=== PATIENT | female | born 1950 | race Caucasian/White ===

== ENCOUNTER → 2024-07-17 12:53 | Outpatient (REF) | payer OTHER, SELFPAY | LOC: HWWDC 12:53 | PROVIDERS: ATTENDING PHYSICIAN Nurse Practitioner Adult Health; OTHER PHYSICIAN Obstetrics & Gynecology Gynecology | DX: Z12.31 Encounter for screening mammogram for malignant neoplasm of breast (principal) | CPT/HCPCS: 77063; 77067 ==

== ENCOUNTER → 2024-08-03 13:45 | Outpatient (REF) | payer OTHER, SELFPAY | LOC: WDC 13:45 | PROVIDERS: ATTENDING PHYSICIAN Obstetrics & Gynecology Gynecology; FAMILY PHYSICIAN Nurse Practitioner Adult Health | DX: N64.4 Mastodynia (principal) | CPT/HCPCS: 76642 ==

== ENCOUNTER → 2024-12-28 09:12 | Outpatient (REF) | payer OTHER, SELFPAY | LOC: RAD 09:12 | PROVIDERS: ATTENDING PHYSICIAN Specialist; FAMILY PHYSICIAN Nurse Practitioner Adult Health | DX: Z96.652 Presence of left artificial knee joint (principal); M25.562 Pain in left knee | CPT/HCPCS: 78315; A9503 ==

== ENCOUNTER 2025-03-08 09:25 | Inpatient (IN) | payer OTHER, SELFPAY ==
[2025-02-08 11:38] LABS: Hematocrit 42.7 % (37.0-47.0); Hemoglobin 14.3 g/dL (12.0-16.0); Mean Corp Hgb Conc. 33.5 g/dL (33.0-37.0); Mean Corpuscular Hgb 30.9 pg (27.0-31.0); Mean Corpuscular Volume 92.2 fL (81.0-99.0); Mean Platelet Volume 9.1 fL (7.4-10.4); Platelet Count 312 10^3/uL (130-400); Red Blood Cell Count 4.63 10^6/uL (4.20-5.40); Red Cell Dist. Width 13.2 % (11.5-14.5); White Blood Cell Count 8.9 10^3/uL (4.8-10.8)
[2025-02-08 12:03] LABS: Glycohemoglobin (HgbA1c) 5.3 % (4.0-5.6)
[2025-02-08 13:38] VITALS: BMI 31.3
[2025-02-08 15:38] LABS: ALT (SGPT) 22 U/L (0-35); AST (SGOT) 34 U/L (14-36); Albumin 4.7 g/dl (3.5-5.0); Alkaline Phosphatase 56 U/L (38-126); Blood Urea Nitrogen 20 mg/dl (7-17); Carbon Dioxide 24 mmol/L (22-30); Chloride 104 mmol/L (98-107); Estimated Creatinine Clearance 61 ml/min; Glucose 98 mg/dl (70-99); Potassium 4.7 mmol/L (3.5-5.1); Sodium 139 mmol/L (135-145); Total Bilirubin 0.6 mg/dl (0.2-1.3); Total Protein 7.8 g/dl (6.3-8.2); eGFR > 60.00
[2025-02-17 08:41] VITALS: BMI 31.3
[2025-03-08] VITALS (14 sets, daily range): BP systolic 111–149; BP diastolic 59–88; PULSE 66; O2SAT 96
[2025-03-08] MEDS: TYLENOL 650 MG PO ×4 (09:53→23:14)
[2025-03-08] MEDS: BACTROBAN NASAL 1 GRAM NASAL (09:53)
[2025-03-08] MEDS: NORMOSOL-R/PLASMALYTE-A 1000 IV ×2 (10:10→16:00)
--- NOTE | 2025-03-08 13:44 | W.PN.ORTHO ---
Today's Communication / Plan
-
d/c when stable
Assessment
.
Dressing:
Clean, dry and intact.
Assessment:
Deep vein thrombosis, prophylaxis aspirin 81 mg b.i.d. dosing
with advised venous compression device. Due to patient's history of
prior massive GI bleed while on full-dose aspirin, we will utilize
this for blood clot prevention. She does agree to purchase SCD
device. On last endoscopy, ulcer is fully healed, and hemoglobin is
improved in high normal range today's visit. She will continue her
PPI both pre and postoperatively. Plan reviewed this with
Yas, her industrial accountant who also advises increasing her
Protonix to 40mg daily while on aspirin.
Pain control. Patient did become nauseous with oxycodone.
Hydrocodone has been prescribed, and we will avoid any NSAIDs due
to above.
Plan
.
Surgery / Date: L TKA Revision 03/08/25
DVT Prophylaxis: Aspirin (81mg bid w/ SCD)
Activity:
Out of bed.
PT/OT
Vital Signs and Labs
.
Vital Signs and Labs:
Lab Results
02/08/25 11:11
02/08/25 11:11
Temp Pulse Resp BP Pulse Ox
97.3 F 55 12 139/64 97
03/08/25 09:45 03/08/25 09:45 03/08/25 09:45 03/08/25 09:45 03/08/25 09:45
--- NOTE | 2025-03-08 14:03 | W.DS.TRANS ---
Addendum entered and electronically signed by Annabel Gilliland PA-C 03/09/25 09:47:
Cefadroxil 500mg bid disp #14
Probiotic
Original Note:
DC Summary - Tc Operator
-
Discharge Instructions:
Sleep Apnea Risk Intermediate
Discharge Diagnosis/Procedures L TKA Revision 03/08/25
Diet As tolerated
Activity With Walker
Additional Activity Adequate hydration, minimize Oxy and wear TEDs
stockings to prevent low blood pressure/
dizziness
Driving Restrictions No driving
Bathing Restrictions OK to Shower
Other Services PT
Instructions:
Stand-Alone Forms: Total Hip/Knee Replacement D/C
Changes to Home Medications: Yes
Discharge Medications:
DC Medications w/original date entered in [facility]
ascorbic acid (vitamin C) 1,000 mg tablet (Vitamin C) 1 g PO DAILY 02/05/25
biotin 10,000 mcg capsule 10,000 mcg PO DAILY 02/05/25
xjxobeq-ilhvljbrc-eyvt tablet 1 tab PO DAILY 02/05/25
cholecalciferol (vitamin D3) 125 mcg (5,000 unit) tablet (Vitamin D3) 125 mcg PO DAILY 02/05/25
varsha (Zingiber officinalis) 550 mg capsule 1,100 mg PO DAILY 02/05/25
iron bisglycinate chelate 25 mg PO DAILY 02/05/25
lysine 500 mg tablet (L-Lysine) 500 mg PO DAILY 02/05/25
mecobalamin (vitamin B12) 1,000 mcg chewable tablet 1,000 mcg PO DAILY 02/05/25
paroxetine HCl 20 mg tablet 20 mg PO HS 02/05/25
propranolol 10 mg tablet 5 mg PO DAILY TREMORS 02/05/25
turmeric root extract 500 mg tablet 1,500 mg PO DAILY 02/05/25
vitamin B complex 1 tab PO DAILY 02/05/25
dexamethasone 4 mg tablet 4 mg PO BID inflammation #6 tabs 02/08/25
gabapentin 300 mg capsule 300 mg PO HS sleep/pain #10 caps 02/08/25
hydrocodone 5 mg-acetaminophen 325 mg tablet 1 tab PO Q6H PRN 1 tab moderate pain or 2 if severe #30 tabs 02/08/25
mupirocin 2 % topical ointment 1 applic topical BID infection prevention #1 tube 02/08/25
ondansetron 4 mg disintegrating tablet 4 mg PO Q6H PRN n/v #20 tabs 02/08/25
acetaminophen 325 mg tablet 650 mg (2 x 325 mg) PO QID #0 tabs 03/08/25
aspirin 81 mg tablet,delayed release 81 mg PO BID Blood clot prevention/tx #60 tabs 03/08/25
docusate sodium 100 mg capsule (Colace) 100 mg PO BID stool softner #1 cap 03/08/25
magnesium hydroxide 400 mg/5 mL oral suspension (Milk of Magnesia) 30 ml PO HS PRN constipation #1 mL 03/08/25
pantoprazole 20 mg tablet,delayed release 40 mg (2 x 20 mg) PO DAILY GI prophlyaxis #90 tabs 03/08/25
sennosides 8.6 mg tablet (Senokot) 17.2 mg (2 x 8.6 mg) PO BID laxative #2 tabs 03/08/25
Home Medication Changes
dexamethasone 4 mg tablet 4 mg PO BID inflammation #6 tabs 02/08/25
gabapentin 300 mg capsule 300 mg PO HS sleep/pain #10 caps 02/08/25
hydrocodone 5 mg-acetaminophen 325 mg tablet 1 tab PO Q6H PRN 1 tab moderate pain or 2 if severe #30 tabs 02/08/25
mupirocin 2 % topical ointment 1 applic topical BID infection prevention #1 tube 02/08/25
ondansetron 4 mg disintegrating tablet 4 mg PO Q6H PRN n/v #20 tabs 02/08/25
acetaminophen 325 mg tablet 650 mg (2 x 325 mg) PO QID #0 tabs 03/08/25
aspirin 81 mg tablet,delayed release 81 mg PO BID Blood clot prevention/tx #60 tabs 03/08/25
docusate sodium 100 mg capsule (Colace) 100 mg PO BID stool softner #1 cap 03/08/25
magnesium hydroxide 400 mg/5 mL oral suspension (Milk of Magnesia) 30 ml PO HS PRN constipation #1 mL 03/08/25
pantoprazole 20 mg tablet,delayed release 40 mg (2 x 20 mg) PO DAILY GI prophlyaxis #90 tabs 03/08/25
sennosides 8.6 mg tablet (Senokot) 17.2 mg (2 x 8.6 mg) PO BID laxative #2 tabs 03/08/25
Pending Results: No
[2025-03-08] MEDS: NORCO 5/325 1 TABLET PO (15:48)
[2025-03-08] MEDS: DILAUDID 0.5 MG IV (16:08)
[2025-03-08] MEDS: NORCO 5/325 PO (17:47)
[2025-03-08] MEDS: PROTONIX 40 MG PO (18:03)
[2025-03-08] MEDS: ANCEF 5 IV (18:03)
--- NOTE | 2025-03-08 18:23 | PTCARENOTE ---
Received patient from PACU via bed around 1730 in stable condition. Left knee dressing with a small amount of drainage. +movement + sensation to LLE. Patient oriented to room. Call chavez in reach.
[2025-03-08] MEDS: SENOKOT 17.2 MG PO (20:10)
[2025-03-08] MEDS: ASPIR LOW (ENTERIC COATED) 81 MG PO (20:11)
[2025-03-08] MEDS: COLACE 100 MG PO (20:11)
[2025-03-08] MEDS: DECADRON 4 MG IV (20:11)
[2025-03-08] MEDS: BACTROBAN 2% OINTMENT 1 APPLIC NASAL (20:11)
[2025-03-08] MEDS: PAXIL 20 MG PO (22:18)
[2025-03-08] MEDS: NEURONTIN 300 MG PO (22:18)
[2025-03-09 03:00] VITALS: BP 141/65
[2025-03-09] MEDS: TYLENOL 650 MG PO ×2 (03:44→10:09)
[2025-03-09] MEDS: ANCEF 5 IV (03:44)
[2025-03-09] MEDS: NORCO 5/325 1 TABLET PO (06:05)
--- NOTE | 2025-03-09 06:41 | W.PN.ORTHO ---
Today's Communication / Plan
-
d/c when stable
Assessment
.
Distal Motor Intact: Yes
Dressing:
Clean, dry and intact.
Assessment:
Deep vein thrombosis, prophylaxis aspirin 81 mg b.i.d. dosing
with advised venous compression device. Due to patient's history of
prior massive GI bleed while on full-dose aspirin, we will utilize
this for blood clot prevention. She has purchased SCD
device. On last endoscopy, ulcer is fully healed, and hemoglobin is
improved in high normal range today's visit. She will continue her
PPI both pre and postoperatively. Plan reviewed this with
Yas, her fine arts teacher who also advises increasing her
Protonix to 40mg daily while on aspirin.
Pain control. Patient did become nauseous with oxycodone.
Hydrocodone has been prescribed, and we will avoid any NSAIDs due
to above.
Discussion re TEDs, adequate hydration and adhering to bowel regimen was stressed both for maintaining BP and prevention of p/o obstruction/ileus.
Plan
.
Surgery / Date: L TKA Revision 03/08/25
DVT Prophylaxis: Aspirin (81mg bid w/ SCD)
Activity:
Out of bed.
PT/OT
Discharge Plan: Home w/ Outpatient PT
Subjective
.
.:
Patient resting comfortably.
Vital Signs and Labs
.
Vital Signs and Labs:
Lab Results
02/08/25 11:11
02/08/25 11:11
Temp Pulse Resp BP Pulse Ox
98.2 F 67 16 141/65 95
03/09/25 03:00 03/09/25 03:00 03/09/25 03:00 03/09/25 03:00 03/09/25 03:00
Non-invasive Hgb result: 15.3
Physical Exam
-
HEENT: No pallor, cyanosis, or jaundice. Throat clear.
NECK: Supple. No JVD.
RESPIRATORY: Lungs clear to auscultation.
CVS: S1, S2 normal. RRR.� No murmur, rub or gallop.
ABDOMEN: Soft, non-tender. No distension. BS+/normal.
EXTREMITIES: strength equal, no calf pain with palpation
ANGLE SHEARER: AOx3. No focal deficits. glass inserter grossly intact
[2025-03-09 07:00] VITALS: BP 138/79
--- NOTE | 2025-03-09 08:43 | CM ---
Cm reviewed medical records. CM met with patient in room. Patient confirmed demographics. Patient lives with independently. Patent has a history of VN, but not currently on service. Patient does not have a history of SNF. Patient has a
cane, walker, shower chair and raised toilet seat. Patient is active with her PCP. Patient has medication coverage.
Patient has an outpatient appointment with [facility] on 03/10.
PLAN: Outpatient PT.
[2025-03-09] MEDS: COLACE 100 MG PO (10:09)
[2025-03-09] MEDS: ASPIR LOW (ENTERIC COATED) 81 MG PO (10:09)
[2025-03-09] MEDS: SENOKOT 17.2 MG PO (10:09)
[2025-03-09] MEDS: BACTROBAN 2% OINTMENT 1 APPLIC NASAL (10:09)
[2025-03-09] MEDS: PROTONIX 40 MG PO (10:09)
[2025-03-09] MEDS: DECADRON 4 MG IV (10:10)
[2025-03-09] MEDS: INDERAL 5 MG PO (10:11)
[2025-03-09 10:15] VITALS: BP 152/72; BP 154/69; PULSE 66; O2SAT 96
[2025-03-09 10:49] VITALS: BP 161/80
[2025-03-09 11:47] VITALS: BP 145/72; PULSE 60; O2SAT 96
== END 2025-03-09 11:55 | disposition home or self-care (01) | DRG 468 ==
LOC: 2 SOUTH 09:25
PROVIDERS: ADMITTING PHYSICIAN Specialist; FAMILY PHYSICIAN Nurse Practitioner Adult Health
PROC: 0SPD0JZ Removal of Synthetic Substitute from Left Knee Joint, Open Approach (ICD-10-PCS; 2025-03-08)
PROC: 0SRD0J9 Replacement of Left Knee Joint with Synthetic Substitute, Cemented, Open Approach (ICD-10-PCS; 2025-03-08)
DX: T84.033A Mechanical loosening of internal left knee prosthetic joint, initial encounter (principal); Y79.8 Miscellaneous orthopedic devices associated with adverse incidents, not elsewhere classified; K27.9 Peptic ulcer, site unspecified, unspecified as acute or chronic, without hemorrhage or perforation; K22.2 Esophageal obstruction; G25.0 Essential tremor; Z87.891 Personal history of nicotine dependence; Z79.82 Long term (current) use of aspirin
CPT/HCPCS: 36415; 73560; 80053; 83036; 85027; 86850; 86900; 86901; 87070; 93005; 97110; 97116; 97162; 97166; 97530; C1713; C1762; C1776

== ENCOUNTER 2025-03-25 00:14 | Emergency (ER) | payer OTHER, SELFPAY ==
[2025-03-25 00:17] VITALS: BP 117/72
[2025-03-25 00:48] VITALS: BP 112/65; BMI 31.6
[2025-03-25 01:00] VITALS: BP 122/54
--- NOTE | 2025-03-25 01:36 | ED.GENMED ---
History of Present Illness
General
Chief Complaint: Abdominal Symptoms
Source: patient, spouse and previous hospital records (Overnight hospitalization March 08 to March 09 after undergoing left total knee arthroplasty revision.)
Exam Limitations: none
Time Seen by Provider: 03/25/25 01:17
Nursing documentation reviewed up to this point in time: agreed with
History of Present Illness
History of Present Illness:
This is a 74-year-old woman who resides at home with her . She has history of left total knee replacement 2020 with persistent pain, concern for loosening of tibial hardware and thus underwent left total knee arthroplasty revision on March 08.
Hospitalized overnight for pain control. Discharged to home on the , has been taking [place] for pain, participating in outpatient physical therapy. She admits to moderate persistent knee pain but has been participating with physical therapy.
She presents with lower abdominal discomfort, crampy in nature along with significant constipation. She has not been maintained on a persistent bowel regimen and instead has been taking Dulcolax tablets over the past few days with resultant passage
of only a few small hard marbles of stool.
She has prior history of 1 prior episode of diverticulitis and states current abdominal pain feels quite different from previous episode of diverticulitis. She has not had a fever nor chills. She denies dysuria and urgency and or hematuria, denies
back nor flank pain.
Appetite has been somewhat poor but she has had no nausea nor vomiting. No chest pain or cough no shortness of breath.
She has prior history of upper GI bleed related to aspirin use. She denies upper abdominal pain, denies black or tarry stools and denies hematochezia.
Past History
Past History
ED Past Medical History: Other (Diverticulitis, upper GI bleed related to duodenal ulcer from aspirin use, kidney stone); Negative Asthma, HTN, Hypercholesterolemia or NIDDM
ED Past Surgical History: Orthopedic (left total knee 2020, left total knee revision March 08, 2025)
Social History
Tobacco: Former smoker
Alcohol: None
Personal:
Living: with family
Employment: Retired
Family History
Family History: Other (Noncontributory)
Phy Exam
Physical Exam
Physical Exam:
GENERAL: 74-year-old woman appears her stated age, awake and alert, appears in no acute distress. is accompanying.
EYE: anicteric
NECK: Supple, nontender, no meningismus, no significant adenopathy.
ENT: oral mucosa is moist. No rhinorrhea.
CARDIAC: Regular rate and rhythm. no murmur.
LUNGS: Clear breath sounds bilaterally, no acute respiratory distress, no wheezes/rales/rhonchi
ABDOMEN: Soft, nondistended, mild tenderness left lower quadrant with deep palpation only, no palpable masses, no r/g, no cvat. normoactive BS.
NEUROLOGICAL: Alert and oriented x3, no focal neuro deficits. Gait is mendez and steady.
SKIN: Warm and dry, normal color, skin intact. No rash.
MUSCULOSKELETAL: No C/C/E. peripheral pulses are full and equal b/l. Left anterior knee Steri-Strips dry and intact over intact vertical incision. There is mild left knee joint effusion. No erythema.
PSYCH: Normal and appropriate interaction.
Course
Orders/Labs/Results
Orders:
Orders
03/25/25 01:26
CR Obstruct Series W/pa Chest Urgent
Comment:
Reason For Exam: lower abd crampy pain, constipation x several days
03/25/25 01:57
Enema- Treatment ONCE
Type: Milk of Molasses
Vital Signs
Initial and Last Documented VS:
Initial Vital Signs
Temp Pulse Resp BP Pulse Ox
98.7 F 91 20 117/72 97
03/25/25 00:17 03/25/25 00:17 03/25/25 00:17 03/25/25 00:17 03/25/25 00:17
Last Documented Vital Signs
Temp Pulse Resp BP Pulse Ox
98.7 F 91 20 109/63 97
03/25/25 00:17 03/25/25 00:17 03/25/25 00:17 03/25/25 02:46 03/25/25 02:46
MDM/Problems Addressed
Differential Diagnosis Includes:
Concern for postop constipation related to narcotic pain medication. Other consideration is diverticulitis.
Will check obstruction series. If no significant stool burden will check labs and CT.
Chronic conditions affecting care: Other (Prior history of diverticulitis, history of renal calculi. Prior history of upper GI bleed. Recent left total knee revision.)
*Radiology
Radiology exam reviewed: preliminary read by ED provider (Moderate stool rectosigmoid region without evidence of obstipation nor obstruction.)
*Pulse Oximetry
Patient hypoxic: no
*Critical Care Note
Total Time (30-74mins, 75-104mins- exclusive of procedures): Not Applicable
Update Note
Update Note:
03:00
Obstruction series shows moderate stool within the rectal distal sigmoid region but no evidence of obstruction nor fecal impaction.
After receiving milk of molasses enema patient passed a large bowel movement.
Abdomen is soft without appreciable tenderness.
Will discharge to home with recommendations to initiate twice daily Senokot, twice daily Colace as well as high-fiber diet.
Prompt follow-up with PCP for recheck.
ED Attending Note
-
Portions of this chart may have been created with voice recognition software.� Occasional wrong word or��sound alike� substitutions may have occurred due to the inherent limitations of voice recognition software.
Discharge Plan
Departure
Patient Disposition: Home (Routine Discharge)
Date of Disposition: 03/25/25
Time of Disposition: 03:11
Patient with high blood pressure during this ER visit?: No
Condition: Good
Discharge Problem:
Constipation due to opioid therapy
Instructions: Constipation, Adult (DC)
Prescriptions:
No Action
ascorbic acid (vitamin C) [Vitamin C] 1,000 mg Tablet
1 g PO DAILY
propranolol 10 mg Tablet
5 mg PO DAILY
ibfsiuu-ahnkyyauz-namu Tablet
1 tab PO DAILY
paroxetine HCl 20 mg Tablet
20 mg PO HS
biotin 10,000 mcg Capsule
10,000 mcg PO DAILY
vitamin B complex Tablet
1 tab PO DAILY
lysine [L-Lysine] 500 mg Tablet
500 mg PO DAILY
varsha (Zingiber officinalis) 550 mg Capsule
1,100 mg PO DAILY
cholecalciferol (vitamin D3) [Vitamin D3] 125 mcg (5,000 unit) Tablet
125 mcg PO DAILY
mecobalamin (vitamin B12) 1,000 mcg Tablet,Chewable
1,000 mcg PO DAILY
turmeric root extract 500 mg Tablet
1,500 mg PO DAILY
iron bisglycinate chelate
25 mg PO DAILY
mupirocin 2 % ointment
1 applic topical BID Qty: 1 0RF
Patient Comments:
RN applied as ordered today @ 09:49. First dose.
hydrocodone-acetaminophen 5-325 mg tablet
1 tab PO Q6H PRN (Reason: 1 tab moderate pain or 2 if severe) Qty: 30 0RF
Rx Instructions:
Dx orthopedic surgery
ongoing therapy
dexamethasone 4 mg tablet
4 mg PO BID Qty: 6 0RF
Rx Instructions:
take with food
post-op use only
gabapentin 300 mg capsule
300 mg PO HS Qty: 10 0RF
Rx Instructions:
*POST-OP USE ONLY
ondansetron 4 mg tablet,disintegrating
4 mg PO Q6H PRN (Reason: n/v) Qty: 20 0RF
Rx Instructions:
take 1/2h b/f pain med if recurrent nausea
allow to dissolve in mouth w/o water
docusate sodium [Colace] 100 mg capsule
100 mg PO BID Qty: 1 0RF
magnesium hydroxide [Milk of Magnesia] 400 mg/5 mL suspension
30 ml PO HS PRN (Reason: constipation) Qty: 1 0RF
Rx Instructions:
continue taking colace and senokot as advised--if no bowel movement 1 day after surgery -add milk of mag
sennosides [Senokot] 8.6 mg tablet
17.2 mg PO BID Qty: 2 0RF
acetaminophen 325 MG tablet
650 mg PO QID Qty: 0 0RF
pantoprazole 20 mg Tablet,Delayed Release (Dr/Ec)
40 mg PO DAILY Qty: 90 0RF
Rx Instructions:
higher dose while on aspirin
aspirin 81 mg Tablet,Delayed Release (Dr/Ec)
81 mg PO BID Qty: 60 0RF
carboxymethylcellulose sodium [Refresh Plus] 0.5 % Dropperette
1 drp OPHTHALMIC (EYE) Q2HPRN PRN (Reason: Reduction Of Transepidermal Water Loss)
GenTeal PM 94-3 % Ointment
1 applic OPHTHALMIC (EYE) HS
cefadroxil 500 mg capsule
500 mg PO BID Qty: 14 0RF
Rx Instructions:
*Take w/ food
*Take w/ probiotic
*POST-OP USE
Saccharomyces boulardii [Florastor] 250 mg capsule
250 mg PO BID Qty: 1 0RF
Referrals:
UNKNOWN - PT DOES,NOT KNOW [Family Provider]
Jodie Brooks CRNP [Specified Professional Personl, Internal Medicine] - Call in 1-3 days for appt
Activity Restrictions/Additional Instructions:
Maintain a high-fiber diet as well as stay well-hydrated on a daily basis.
While taking hydrocodone, I want you to start Senokot taking 1 tablet twice daily as well as Colace 1 tablet twice daily.
If constipation recurs despite this regimen you can take milk of magnesia once or twice a day as needed versus Dulcolax tablets.
Follow-up with your primary care physician for recheck.
Interventions
Interventions:
*Risk Screen - Suicide Last Done: 03/25/25 00:17
*General Assessment Last Done: 03/25/25 00:48
*Neglect/Abuse Screening Last Done: 03/25/25 00:48
*ED- Fall Risk Assessment Last Done: 03/25/25 00:48
*ED COVID-19 Vaccine History Last Done: 03/25/25 00:48
ST-Scgzyb-Jusofzrfux Assessment Last Done: 03/25/25 00:48
Discharge Date and Time
Print Language: BULGARIAN
[2025-03-25 02:46] VITALS: BP 109/63
[2025-03-25 03:00] VITALS: BP 105/52
== END 2025-03-25 03:52 | disposition home or self-care (01) ==
LOC: EMR 00:14
PROVIDERS: EMERGENCY PHYSICIAN Emergency Medicine
DX: K59.00 Constipation, unspecified (principal); R10.30 Lower abdominal pain, unspecified; M25.462 Effusion, left knee; M25.562 Pain in left knee; T40.2X5A Adverse effect of other opioids, initial encounter; K57.92 Diverticulitis of intestine, part unspecified, without perforation or abscess without bleeding; Z79.82 Long term (current) use of aspirin; Z98.890 Other specified postprocedural states; Z96.652 Presence of left artificial knee joint; Z87.11 Personal history of peptic ulcer disease; Z87.442 Personal history of urinary calculi; Z87.891 Personal history of nicotine dependence; Z88.6 Allergy status to analgesic agent
CPT/HCPCS: 99283; 74022

== ENCOUNTER → 2025-08-17 14:14 | Outpatient (REF) | payer OTHER, SELFPAY | LOC: HWWDC 14:14 | PROVIDERS: ATTENDING PHYSICIAN Obstetrics & Gynecology Gynecology; FAMILY PHYSICIAN Nurse Practitioner Family | DX: Z12.31 Encounter for screening mammogram for malignant neoplasm of breast (principal) | CPT/HCPCS: 77063; 77067 ==